=== PATIENT | female | born 1985 | race Caucasian/White ===

== ENCOUNTER 2024-01-30 02:13 | Emergency (ER) | payer SELFPAY ==
[2024-01-30] MEDS ORDERED: Albuterol 6.7 GM Inhaler INH ONE (02:14)
[2024-01-30] MEDS: Sodium Chloride 0.9% 10 ML Syringe FLUSH PRN (02:50)
[2024-01-30 02:59] LABS: BASOPHILS PERCENT AUTO 0.6 % (0.2-1.5); EOSINOPHILS ABSOLUTE AUTO 0.1 x10-3/uL (0.0-0.8); EOSINOPHILS PERCENT AUTO 1.3 % (0.6-8.1); HEMATOCRIT 39.7 % (34.2-48.2); HEMOGLOBIN 13.8 g/dL (11.4-15.5); LYMPHOCYTES ABSOLUTE AUTO 1.3 x10-3/uL (1.0-4.4); LYMPHOCYTES PERCENT AUTO 19.3 % (18.4-52.1); MEAN CORPUSCULAR HEMOGLOBIN 32.3 pg (23.9-33.9); MEAN CORPUSCULAR HGB CONC 34.8 g/dL (31.9-34.8); MEAN CORPUSCULAR VOLUME 92.7 fL (76.7-100.5); MEAN PLATELET VOLUME 8.4 fL (7.1-12.4); MONOCYTES ABSOLUTE AUTO 0.6 x10-3/uL (0.3-1.0); MONOCYTES PERCENT AUTO 8.1 % (4.4-15.7); NEUTROPHILS ABSOLUTE AUTO 4.9 x10-3/uL (1.5-6.3); NEUTROPHILS PERCENT AUTO 70.7 % (30.8-76.2); PLATELET COUNT,PLT 285 x10(3)uL (151-488); RED BLOOD CELL COUNT 4.28 x10(6)uL (3.60-5.20); RED CELL DISTRIBUTION WIDTH 12.5 % (12.3-16.5); WHITE BLOOD CELL COUNT,WBC 6.9 x10-3/uL (3.0-10.3)
[2024-01-30 03:08] LABS: A/G RATIO 1.2; ALANINE AMINOTRANSFERASE,ALT 26 U/L (12-36); ALBUMIN 3.7 g/dL (3.5-5.2); ALKALINE PHOSPHATASE 90 IU/L (56-112); ASPARTATE AMNIOTRANSFERASE,AST 18 IU/L (5-25); BILIRUBIN TOTAL 0.3 mg/dL (0.1-1.3); BLOOD UREA NITROGEN,BUN 18 mg/dL (7-18); BUN/CREATININE RATIO 16.4 (9-20); CALCIUM 8.8 mg/dL (8.6-10.2); CARBON DIOXIDE,CO2 31 mmol/L (21-32); CHLORIDE,CL 102 mmol/L (100-110); CREATININE 1.1 mg/dL (0.55-1.02); EST CRCL DRUG DOSING (CG) 63.92 mL/min; ESTIMATED GFR 66 mL/min (>60); GLUCOSE RANDOM 95 mg/dL (80-116); PROTEIN TOTAL,TP 6.9 g/dL (6.0-8.0); SODIUM,NA 140 mmol/L (135-145)
[2024-01-30] MEDS: Iopamidol 755 Mg/ML 100 ML Bottle IV SCH (03:20)
== END 2024-01-30 04:00 | disposition home or self-care (01) ==
LOC: FB.ED 02:13
DX: R04.2 Hemoptysis (principal); F17.210 Nicotine dependence, cigarettes, uncomplicated; I10 Essential (primary) hypertension; Z88.2 Allergy status to sulfonamides; Z79.899 Other long term (current) drug therapy
CPT/HCPCS: 36415; 71275; 80053; 85025; 99285; A9270; J3490; Q9967